=== PATIENT | male | born 1995 | race African-American/Black ===

== ENCOUNTER 2018-03-15 16:05 | Emergency (ER) | payer OTHER ==
[~2018-03-15] VITALS: Ht 190.5 cm; Wt 82.0 kg
[2018-03-15] MEDS ORDERED: ONDANSETRON HCL 4MG/2ML INJ IV STA (17:07)
[2018-03-15] MEDS ORDERED: FAMOTIDINE 20MG/2ML VIAL IV STA (17:07)
[2018-03-15] MEDS ORDERED: MAGNESIUM/ALUMINUM HYDROXIDE/SIMETHICONE 30ML UDC PO STA (17:07)
[2018-03-15] MEDS ORDERED: SODIUM CHLORIDE 0.9% 1,000 ML IV ONE (17:07)
[2018-03-15 17:21] LABS: BASOPHILS % 0.8 % (0.0-2.0); EOSINOPHILS % 1.9 % (0.0-5.0); HEMATOCRIT. 42.1 % (42.0-52.0); HEMOGLOBIN. 14.9 g/dL (14.0-18.0); MEAN CORPUSCULAR HEMOGLOBIN 33.7 pg (28.0-32.0); MEAN CORPUSCULAR VOLUME 94.8 fL (80.0-94.0); MEAN PLATELET VOLUME 7.6 fl (7.4-10.4); MONOCYTES % 10.1 % (2.0-8.0); NEUTROPHILS % 72.2 % (40.0-76.0); PLATELET 293 x1000/uL (130-400); RED BLOOD CELL COUNT 4.44 mill/uL (4.7-6.1)
[2018-03-15 17:27] LABS: INR 1.1; PARTIAL THROMBOPLASTIN TIME 26.6 sec (23.4-31.0); PROTHROMBIN TIME 10.8 sec (9.1-11.1)
[2018-03-15 17:29] LABS: CHLORIDE 104 mEq/L (98-107)
[2018-03-15 17:35] LABS: ETHANOL BLOOD < 10 mg/dL
[2018-03-15] MEDS ORDERED: MORPHINE SULFATE 4 MG/ML CPJ (NOT FOR IM USE) IV ONE (18:00)
[2018-03-15] MEDS ORDERED: NITROGLYCERIN 0.4MG TABLET SL SL ONE (18:00)
[2018-03-15] MEDS ORDERED: ASPIRIN 81MG TABLET PO ONE (18:00)
[2018-03-15] MEDS ORDERED: ONDANSETRON HCL 4MG/2ML INJ IV ONE (18:00)
[2018-03-15 19:49] VITALS: BP 116/56
== END 2018-03-15 21:00 | disposition left against medical advice (07) ==
LOC: ER 16:05
DX: R10.32 Left lower quadrant pain (principal); R07.2 Precordial pain; R06.02 Shortness of breath; R53.1 Weakness; R11.2 Nausea with vomiting, unspecified; R94.31 Abnormal electrocardiogram [ECG] [EKG]; K29.60 Other gastritis without bleeding
CPT/HCPCS: 36415; 71045; 74176; 80053; 80307; 80329; 83690; 84484; 85025; 85610; 85730; 93005; 96361; 96374; 96375; 96376; 99285; G0482; J2270; J2405; J3490; J7030